=== PATIENT | male | born 1955 | race Hispanic/Latino ===

== ENCOUNTER → 2017-10-14 | Outpatient (CLI) | payer OTHER ==
[~2017-10-14] MED LIST: ASPI-1197 PO; ATOR40TA28 PO; FISH1CAP27 PO; HYDR25TA PO; INHALER IH; INSLAN SQ; LOSA100T29 PO; METF1000 PO; METO25TA6 PO; OMEG1CAP31 PO; PANT40TA25 PO; SITA100T12 PO
== END | disposition home or self-care (01) ==
LOC: SLP 20:30
PROVIDERS: ATTEND Family Medicine
DX: G47.30 Sleep apnea, unspecified (principal)
CPT/HCPCS: 95811

== ENCOUNTER 2017-10-22 08:53 | Day surgery (SDC) | payer OTHER ==
[~2017-10-22] VITALS: Ht 167.6 cm; Wt 104.4 kg
[~2017-10-22 08:53] MED LIST changes: -HYDR25TA PO; -INHALER IH; -OMEG1CAP31 PO; +SODIUM CHLORIDE 0.9% 1000ML 0 ML IV ONE; +SODIUM CHLORIDE 0.9% 1000ML 1,000 ML IV ONE
[2017-10-22 09:45] VITALS: BP 132/83
[2017-10-22] MEDS ORDERED: OMEG1CAP31 PO (10:20)
[2017-10-22] MEDS ORDERED: HYDR25TA PO (10:20)
[2017-10-22] MEDS ORDERED: INHALER IH (10:20)
[2017-10-22] MEDS ORDERED: PROPOFOL 10 MG/ML 20ML VIAL IV ONE (10:34)
[2017-10-22 10:54] VITALS: BP 98/36
== END 2017-10-22 11:35 ==
LOC: DAH 08:53 → ENDO 08:53
PROVIDERS: ATTEND Internal Medicine Gastroenterology
DX: Z08 Encounter for follow-up examination after completed treatment for malignant neoplasm (principal); K62.1 Rectal polyp; G47.30 Sleep apnea, unspecified; I10 Essential (primary) hypertension; K21.9 Gastro-esophageal reflux disease without esophagitis; E78.4 Other hyperlipidemia; E11.9 Type 2 diabetes mellitus without complications; Z79.899 Other long term (current) drug therapy; Z85.038 Personal history of other malignant neoplasm of large intestine; Z98.0 Intestinal bypass and anastomosis status; Z79.82 Long term (current) use of aspirin; Z95.1 Presence of aortocoronary bypass graft; Z98.890 Other specified postprocedural states
CPT/HCPCS: 82948; 88305; 93005; A4606; J2704; J7030

== ENCOUNTER 2018-09-28 04:57 | Emergency (ER) | payer OTHER ==
[~2018-09-28 04:57] MED LIST changes: +HYDR25TA PO; +INHALER IH; -LOSA100T29 PO; +LOSA100T58 PO; +OMEG1CAP31 PO; -SODIUM CHLORIDE 0.9% 1000ML 0 ML IV ONE; -SODIUM CHLORIDE 0.9% 1000ML 1,000 ML IV ONE
== END 2018-09-28 05:50 | disposition home or self-care (01) ==
LOC: EDH 04:57
DX: B02.9 Zoster without complications (principal); I10 Essential (primary) hypertension; I25.10 Atherosclerotic heart disease of native coronary artery without angina pectoris; E11.9 Type 2 diabetes mellitus without complications; Z95.1 Presence of aortocoronary bypass graft; Z90.49 Acquired absence of other specified parts of digestive tract; Z98.890 Other specified postprocedural states

== ENCOUNTER 2019-06-24 18:16 | Emergency (ER) | payer OTHER ==
[2019-06-24 18:53] LABS: BASOPHILS % (AUTO) 0.5 % (0.0-5.0); EOSINOPHILS % (AUTO) 6.9 % (0.0-8.0); HEMATOCRIT 39.3 % (42-54); LYMPHOCYTES % (AUTO) 23.4 % (21.0-51.0); MEAN CORPUSCULAR HEMOGLOBIN 31.1 pg (27.0-33.0); MEAN CORPUSCULAR HGB CONC 34.4 g/dL (32.0-36.0); MEAN CORPUSCULAR VOLUME 90.6 fL (79-99); MONOCYTES % (AUTO) 9.4 % (3.0-13.0); NEUTROPHILS % (AUTO) 59.3 % (40.0-77.0); PLATELET COUNT (AUTO) 243 K/uL (130-400); RED BLOOD CELL COUNT(AUTO) 4.34 MIL/uL (4.50-6.20); RED CELL DISTRIBUTION WIDTH 11.9 % (11.0-15.5); WHITE BLOOD COUNT (AUTO) 5.8 K/uL (4.8-10.8)
[2019-06-24 19:04] LABS: CREATININE 1.2 mg/dL (0.5-1.5); POTASSIUM 3.9 mmol/L (3.5-5.1)
[2019-06-24 19:15] LABS: B-TYPE NATRIURETIC PEPTIDE 41 pg/mL (0-100)
[2019-06-24] MEDS ORDERED: BENZONATATE 100 MG CAPSULE PO ONE (19:35)
[2019-06-24 19:54] LABS: APPEARANCE,URINE Clear (CLEAR); BILIRUBIN,URINE Negative (NEGATIVE); COLOR,URINE Yellow (YELLOW); GLUCOSE, URINE (UA) >=1000 mg/dL (NEGATIVE); KETONES,URINE Negative (NEGATIVE); LEUKOCYTE ESTERASE ,URINE Negative (NEGATIVE); NITRATE,URINE Negative (NEGATIVE); OCCULT BLOOD,URINE Trace (NEGATIVE); PROTEIN,URINE 300 mg/dL (NEGATIVE); UROBILINOGEN,URINE 0.2 mg/dL (0.2-1.0)
[2019-06-24 20:08] LABS: BACTERIA,URINE Rare /HPF (None Seen); MUCUS,URINE Few LPF (None Seen); SQUAMOUS EPITHELIAL CELL,UR Few /HPF (0-2)
[2019-06-24] MEDS ORDERED: ACETAMINOPHEN 325 MG TAB ONE (20:37)
== END 2019-06-24 22:17 | disposition home or self-care (01) ==
LOC: EDH 18:16
DX: J20.9 Acute bronchitis, unspecified (principal); R09.1 Pleurisy; I10 Essential (primary) hypertension; E11.9 Type 2 diabetes mellitus without complications; I25.810 Atherosclerosis of coronary artery bypass graft(s) without angina pectoris; Z85.038 Personal history of other malignant neoplasm of large intestine
CPT/HCPCS: 36415; 70450; 71046; 80048; 81001; 82550; 83880; 84484; 85025; 87804; 93005